=== PATIENT | female | born 1995 | race Caucasian/White ===

== ENCOUNTER 2017-12-15 18:33 | Emergency (ER) | payer BC, OTHER ==
--- NOTE | 2017-12-15 20:53 | ED ---
Adult Trauma - HPI Summary HPI Summary: Pt with history of 8 months complains of CONNOLLY, nausea, photophobia, blurry vision, dizziness, left-sided facial pain after window fell on her and hit her in the head. Denies LOC, lacerations, abrasions, trauma to tongue or teeth, neck pain, trauma to abdomen.. Medical history is none. - History of Current Complaint Chief Complaint: EDHeadInjury Stated Complaint: HEAD INJURY Time Seen by Provider: 12/15/17 20:01 Hx Obtained From: Patient Hx Last Menstrual Period: 08/04/16 ?: Yes - 8 months Mechanism of Injury: Direct Blow Loss of Consciousness: no loss of consciousness Force: Medium Onset of Pain: Immediate Onset Severity: Moderate Current Severity: Moderate Pain Intensity: 7 Pain Scale Used: 0-10 Numeric Location: Head Character: Aching Associated Signs & Symptoms: Positive: Nausea/Vomiting - Allergy/Home Medications Allergies/Adverse Reactions: Allergies Allergy/AdvReac Type Severity Reaction Status Date / Time No Known Allergies Allergy Verified 12/15/17 18:38 Home Medications: Home Medications Plus Iron Tablet 1 tab PO DAILY 12/15/17 [History Confirmed 12/15/17] PMH/Surg Hx/FS Hx/Imm Hx Respiratory History: Reports: Hx Asthma Infectious Disease History: No Infectious Disease History: Denies: History Other Infectious Disease, Traveled Outside the [place] in Last 30 Days - Family History Known Family History: Negative: Cardiac Disease, Hypertension, Diabetes - Social History Alcohol Use: None Alcohol Amount: "MODERATELY" Substance Use Type: Reports: None Smoking Status (MU): Former Smoker Type: Cigarettes Amount Used/How Often: 1/2 PPD Review of Systems Constitutional: Negative Positive: Photophobia, Blurred Vision ENT: Negative Cardiovascular: Negative Respiratory: Negative Gastrointestinal: Negative Genitourinary: Negative Musculoskeletal: Negative Skin: Negative Positive: Headache Psychological: Normal All Other Systems Reviewed And Are Negative: Yes Physical Exam - Summary Physical Exam Summary: No trauma to tongue or teeth noted. No abrasions, laceration, hematoma to the face or head . No pain with palpation of nose or neck. PERRL. neuro exam normal. Triage Information Reviewed: Yes Vital Signs On Initial Exam: Initial Vitals Temp Pulse Resp BP Pulse Ox 97.9 F 94 16 122/70 100 12/15/17 18:35 04/25/18 18:35 12/15/17 18:35 12/15/17 18:35 12/15/17 18:35 Vital Signs Reviewed: Yes Appearance: Positive: Well-Appearing Skin: Positive: Warm Head/Face: Positive: Normal Head/Face Inspection Eyes: Positive: Normal ENT: Positive: Normal ENT inspection Neck: Positive: Supple Respiratory/Lung Sounds: Positive: Clear to Auscultation Cardiovascular: Positive: Normal Abdomen Description: Positive: Nontender Musculoskeletal: Positive: Normal Neurological: Positive: Normal Psychiatric: Positive: Normal AVPU Assessment: Alert - Ofe Coma Scale Best Eye Response: 4 - Spontaneous Best Motor Response: 6 - Obeys Commands Best Verbal Response: 5 - Oriented Coma Scale Total: 15 Diagnostics - Vital Signs Vital Signs Temp Pulse Resp BP Pulse Ox 12/15/17 18:35 97.9 F 94 16 122/70 100 - Laboratory Lab Statement: Any lab studies that have been ordered have been reviewed, and results considered in the medical decision making process. Adult Trauma Course/Dx - Course Course Of Treatment: Patient advised of risks of intracranial bleed from head trauma, including possible sx free interval. Advised CT head indicated, and that fetus could be shielded and radiation exposure for fetus from head CT minimal. Refused head CT due to being 8 months. Advised to return immediately for concerning symptoms. Neuro exam normal. Vital signs stable. peerrl. - Diagnoses Provider Diagnoses: Concussion Discharge - Sign-Out/Discharge Documenting (check all that apply): Discharge/Admit/Transfer - Discharge Plan Condition: Stable Disposition: HOME Prescriptions: Ondansetron ODT TAB* [Zofran 4 MG Odt TAB*] 4 mg PO Q8H PRN 4 Days #14 tab.odt PRN Reason: Nausea Patient Education Materials: Concussion (ED), Post Concussion Syndrome (ED) Referrals: Olena Ryder MD [Primary Care Provider] - Additional Instructions: Follow-up with primary care. Return to the ED for any new or worsening symptoms - Billing Disposition and Condition Condition: STABLE Disposition: HOME
[2017-12-15 22:55] VITALS: BP 122/66
== END 2017-12-15 21:55 | disposition home or self-care (01) ==
LOC: ED 18:33
DX: O26.893 Other specified pregnancy related conditions, third trimester (principal); S06.0X9A Concussion with loss of consciousness of unspecified duration, initial encounter; W20.8XXA Other cause of strike by thrown, projected or falling object, initial encounter; Y92.9 Unspecified place or not applicable; Z3A.00 Weeks of gestation of pregnancy not specified; Z87.891 Personal history of nicotine dependence
CPT/HCPCS: 99282

== ENCOUNTER 2018-02-14 08:49 | Inpatient (IN) | payer BC, OTHER ==
[2018-02-14] MEDS ORDERED: OBEPIDURAL* 250 ML EPIDURAL ONE (09:12)
[2018-02-14 09:41] LABS: ABS Basophils 0.1 10^3/ul (0-0.2); ABS Eosinophils 0.2 10^3/ul (0-0.6); ABS Lymphocytes 2.3 10^3/ul (1.0-4.8); ABS Monocytes 1.4 10^3/ul (0-0.8); ABS Neutrophils 10.1 10^3/ul (1.5-7.7); ABS Nucleated RBC 0 10^3/ul; Eosinophil % 1.6 % (0-6); Hematocrit 33 % (35-47); Hemoglobin 11.7 g/dl (12.0-16.0); Lymphocyte % 16.1 % (25-47); Mean Corpuscular HGB Conc 35 g/dl (31-36); Mean Corpuscular Hemoglobin 32 pg (27-31); Mean Corpuscular Volume 92 fL (80-97); Mean Platelet Volume 9.9 um3 (7.4-10.4); Nucleated Red Blood Cells % 0; Platelet Count 195 10^3/ul (150-450); Red Blood Count 3.63 10^6/ul (4.00-5.40); Red Cell Distribution Width 13 % (10.5-15); White Blood Count 14.1 10^3/ul (3.5-10.8)
[2018-02-14] MEDS ORDERED: oxyCODONE/Acetamin 5/325 MG* TAB PO PRN (10:10)
[2018-02-14] MEDS ORDERED: EPHEDrine (Pressors)* 50 MG/ML VIAL IV PUSH PRN (10:10)
[2018-02-14] MEDS ORDERED: Nalbuphine* 10 MG/ML 1 ML VIAL IV PRN (10:10)
[2018-02-14] MEDS ORDERED: Ketorolac INJ* 30 MG/ML 1 ML VIAL IV PRN (10:10)
[2018-02-14] MEDS ORDERED: Ondansetron 40 MG VIAL* 2 MG/ML 20 ML VIAL IV PRN (10:10)
[2018-02-14] MEDS ORDERED: diPHENhydraMINE IV* 50 MG/ML 1 ml VIAL (BENADRYL) IV PRN (10:10)
[2018-02-14] MEDS ORDERED: Acetaminophen TAB* 325 MG PO PRN (10:10)
--- NOTE | 2018-02-14 10:29 | HP ---
General Information - General Information Maternal Age: 23 Grav: 2 Para: 0 SAB: 1 IEA: 0 Estimated Due Date: 02/11/18 Determined By: LMP Gestational Age in Weeks and Days: 40 Weeks and 3 Days Maternal Blood Type and Rh: AB Positive - Results this Serology/RPR Result: Non-Reactive Rubella Result: Non-Immune HBsAg Result: Negative HIV Result: Negative GBS Culture Result: Negative Past Medical History Delivery History: See Records Pertinent Past Medical History: Non-Contributory - Pertinent Past Surgical History: None Pertinent Family History: Non-Contributory - Antepartal Records Antepartal Records: Reviewed, Uncomplicated Review of Systems Constitutional: Uncomfortable CV Complaint: No Respiratory: Shortness of Breath: No Gastrointestinal: Normal Bowel Movement - some vomiting in labor Genitourinary: Leaking Fluid, No Dysuria, No Bleeding Musculoskeletal: No Complaint Neurological: No Headache, No Visual Changes Movement: Normal Exam Allergies/Adverse Reactions: Allergies No Known Allergies Allergy (Verified 12/15/17 18:38) T- 98.3, P-80, R-18, BP-123/78, O2-100% Lab Values - Entire Visit: Laboratory Tests 02/14/18 02/14/18 09:20 09:20 WBC 14.1 H RBC 3.63 L Hgb 11.7 L Hct 33 L MCV 92 MCH 32 H MCHC 35 RDW 13 Plt Count 195 MPV 9.9 Neut % (Auto) 72.0 Lymph % (Auto) 16.1 L Cascade % (Auto) 9.7 H Eos % (Auto) 1.6 Baso % (Auto) 0.6 Absolute Neuts (auto) 10.1 H Absolute Lymphs (auto) 2.3 Absolute Monos (auto) 1.4 H Absolute Eos (auto) 0.2 Absolute Basos (auto) 0.1 Absolute Nucleated RBC 0 Nucleated RBC % 0 Blood Type AB Positive Antibody Screen Negative - Measurements Height: 5 ft 6 in Weight: 81.193 kg Weight in lbs: 179.688104 Body Mass Index (BMI): 28.8 Pre- Weight: 64.41 kg Weight Gained This : 37 lbs and 0 ozs - Exam Abdomen: No Upper Quadrant Pain Breast: Breast Exam Deferred CVA: No CVA Tenderness Extremities: No Edema Heart: Normal Rhythm/Heart Sounds HEENT: No Significant Findings Lungs: Clear Bilaterally Rectal: Rectal Exam Deferred Reflexes: DTR 2+ Thyroid: No Thyromegaly - Abdominal Exam Abdomen Exam: Non-Tender - Ultrasound/Biophysical Profile Ultrasound Status: Not Done Targeted Exam Findings See L&D Outpatient Visit Provider Note for Findings: N/A Estimated Weight: 7.5# Cervical Exam: 8cm Effacement: 100% Station: -1 Presenting Part: Vertex Membrane Status: Intact Bleeding/Discharge: Bloody Show EFM Findings - External Monitor Findings Baseline Heart Rate: 130 External Monitor Findings: Accelerations Present, No Pattern of Variable or Late Decelerations, Variability Moderate, Baseline Stable Contractions: Regular Contraction Frequency: 2-3 Assessment/Plan - Reason for Visit Reason for Visit: active labor - Plan Plan: Active Labor
[2018-02-14] MEDS ORDERED: OBEPIDURAL* 250 ML EPIDURAL SCH (11:00)
[2018-02-14] MEDS ORDERED: Oxytocin in LR* 20 UNITS/1,000 ML BAG IVPB ONE (16:31)
[2018-02-14] MEDS ORDERED: Glycerin ADULT SUPP PR PRN (17:53)
[2018-02-14] MEDS ORDERED: Witch Hazel PAD* JAR TOPICAL PRN (17:53)
[2018-02-14] MEDS ORDERED: Dibucaine 1% 28.35 GM TUBE PR PRN (17:53)
[2018-02-14] MEDS ORDERED: Methylergonovine INJ* 0.2 MG/ML 1ML AMP IM ONE (17:53)
[2018-02-14] MEDS ORDERED: Oxytocin in LR* 20 UNITS/1,000 ML BAG IVPB SCH (18:00)
[2018-02-14] MEDS: Ibuprofen TAB* 600 MG PO PRN (19:16)
[2018-02-14] MEDS: Docusate CAP* 100 MG PO SCH (22:03)
[2018-02-15 07:01] LABS: ABS Basophils 0 10^3/ul (0-0.2); ABS Eosinophils 0.1 10^3/ul (0-0.6); ABS Lymphocytes 1.7 10^3/ul (1.0-4.8); ABS Monocytes 1.1 10^3/ul (0-0.8); ABS Neutrophils 11.8 10^3/ul (1.5-7.7); ABS Nucleated RBC 0 10^3/ul; Eosinophil % 0.8 % (0-6); Hematocrit 25 % (35-47); Hemoglobin 8.8 g/dl (12.0-16.0); Lymphocyte % 11.8 % (25-47); Mean Corpuscular HGB Conc 35 g/dl (31-36); Mean Corpuscular Hemoglobin 33 pg (27-31); Mean Corpuscular Volume 92 fL (80-97); Mean Platelet Volume 10.1 um3 (7.4-10.4); Nucleated Red Blood Cells % 0; Platelet Count 144 10^3/ul (150-450); Red Cell Distribution Width 13 % (10.5-15); White Blood Count 14.7 10^3/ul (3.5-10.8)
--- NOTE | 2018-02-15 08:05 | PROCNOTE ---
[facility] OB: Delivery Note - Delivery A Date of : 02/14/18 Time of : 16:22 Brea Sex: Female Score 1 Minute: 8 Score 5 Minutes: 9 Gestational Age in Weeks and Days at Delivery: 40 Weeks and 3 Days Delivery Method: Spontaneous Vaginal Labor: Spontaneous Did Patient attempt ?: N/A, No Previous Amniotic Fluid: Clear Estimated Blood Loss: 400 - treated with Pitocin and methergine Anesthesia/Analgesia: CEI for Labor Delivered By: Madelyn Perry Nursery Level of Nursery: Regular/Bedside - Perineum Perineal Injury: None/Intact Perineal Injury Comment: zayda care done by staff Perineal Repair: None - Events Delivery Events of Note: Pitocin Only After Delivery, Post- Bleeding - Meds Given - Risk for Falls Delivered OB Patient- Risk for Falls: Heavy Bleeding Fall Risk: Patient is at High Risk for Falls - Additional Delivery Notes Additional Delivery Notes: Pt arrived to unit in active labor at 8cm dilation, requested epidural. After receiving epidural pt rested and labored down until she began to feel urge to push. Pt pushed effectively for 76 minutes before delivered in SOLITARIO position with a compound hand over an intact perineum to maternal abdomen. girl was vigorous with a good cry, Apgars of 8 and 9. After waiting for pulsation to cease cord clamped at 3 minutes of life and cut by baby's father. Placenta delivered, Lupe side. Brisk blood flow followed, with a boggy fundus noted, Pitocin 20 mu added to IV bag and methergine administered accompanied by fundal massage, fundus firmed and bleeding slowed. Clots expressed, bleeding ceased, EBL 400. Pt remained with stable vital signs and asymtomatic throughout. Mother and baby stable, skin to skin.
[2018-02-15] MEDS: Docusate CAP* 100 MG PO SCH ×3 (08:39→21:08)
[2018-02-15] MEDS: Ferrous Gluconate TAB* 324 MG TAB PO SCH ×2 (08:39→21:08)
[2018-02-15] MEDS: Ibuprofen TAB* 600 MG PO PRN ×2 (12:05→21:08)
[2018-02-16] MEDS: Docusate CAP* 100 MG PO SCH (08:51)
[2018-02-16] MEDS: Ferrous Gluconate TAB* 324 MG TAB PO SCH (08:51)
[2018-02-16] MEDS: Ibuprofen TAB* 600 MG PO PRN (08:52)
[2018-02-16] MEDS ORDERED: Measles, Mumps,Rubella VACC* 0.5 ML/VIAL ONE (10:01)
[2018-02-16 11:23] VITALS: BP 103/53
== END 2018-02-16 11:28 | disposition home or self-care (01) | DRG 560 ==
LOC: MCHOBOUT 08:49 → MCHOB 09:06
PROVIDERS: ADMIT Midwife; ATTEND Midwife
PROC: 10E0XZZ Delivery of Products of Conception, External Approach (ICD-10-PCS; principal; 2018-02-14)
DX: O48.0 Post-term pregnancy (principal); O72.1 Other immediate postpartum hemorrhage; O32.6XX0 Maternal care for compound presentation, not applicable or unspecified; O90.81 Anemia of the puerperium; D64.9 Anemia, unspecified; Z3A.40 40 weeks gestation of pregnancy; Z37.0 Single live birth
CPT/HCPCS: 36415; 85025; 86850; 86900; 86901; 90707; A9270-GY; J2210